=== PATIENT | male | born 1985 | race American Indian/Alaskan Native ===

== ENCOUNTER 2016-10-28 22:14 | Emergency (ER) | payer OTHER ==
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
[2016-10-29] MEDS ORDERED: TORADOL IM ONE (05:56)
[2016-10-29 06:42] VITALS: BP 123/83
== END 2016-10-29 06:18 | disposition home or self-care (01) ==
LOC: ED 22:14
DX: M54.6 Pain in thoracic spine (principal)
CPT/HCPCS: 96372; 99282; J1885

== ENCOUNTER 2018-05-19 11:14 | Emergency (ER) | payer OTHER, BC ==
[2018-05-19 11:28] VITALS: BP 131/81
[2018-05-19] MEDS ORDERED: TORADOL IM ONE (14:22)
[2018-05-19] MEDS ORDERED: ULTRAM PO ONE (14:22)
[2018-05-19] MEDS ORDERED: FLEXERIL PO ONE (14:26)
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
== END 2018-05-19 14:45 | disposition home or self-care (01) ==
LOC: ED 11:14
DX: S39.012A Strain of muscle, fascia and tendon of lower back, initial encounter (principal); M54.2 Cervicalgia; V49.9XXA Car occupant (driver) (passenger) injured in unspecified traffic accident, initial encounter; Y93.89 Activity, other specified; Y92.410 Unspecified street and highway as the place of occurrence of the external cause; Y99.8 Other external cause status
CPT/HCPCS: 96372; 99282; J1885